=== PATIENT | male | born 1960 | race Two or more races ===

== ENCOUNTER 2022-12-10 10:42 | Emergency (ER) | payer MEDICAID, OTHER ==
[~2022-12-10] VITALS: Ht 172.7 cm; Wt 76.0 kg
[2022-12-10 11:32] VITALS: BP 128/78
[2022-12-10] MEDS ORDERED: HYDROcodone-ACET 5/325MG TAB PO ONE (11:45)
[2022-12-10] MEDS ORDERED: LISI-283 PO (12:04)
[2022-12-10] MEDS ORDERED: CEPH-510 PO (12:04)
[2022-12-10] MEDS ORDERED: LISI-285 PO ×2 (12:04)
[2022-12-10] MEDS ORDERED: HYDR-4902 PO (12:05)
== END 2022-12-10 12:13 | disposition home or self-care (01) ==
LOC: ER 10:42
DX: K40.90 Unilateral inguinal hernia, without obstruction or gangrene, not specified as recurrent (principal); Z76.0 Encounter for issue of repeat prescription; K11.5 Sialolithiasis; I10 Essential (primary) hypertension; Z88.5 Allergy status to narcotic agent

== ENCOUNTER 2023-01-05 10:41 | Emergency (ER) | payer MEDICAID ==
[~2023-01-05] VITALS: Ht 170.2 cm; Wt 70.0 kg
[~2023-01-05 10:41] MED LIST: CEPH-510 PO; HYDR-4902 PO; LISI-283 PO
[2023-01-05 15:21] VITALS: BP 105/74
[2023-01-06] MEDS ORDERED: LISI-283 PO (09:53)
[2023-01-06] MEDS ORDERED: HYDR50CA PO (09:53)
[2023-01-06] MEDS ORDERED: CEPH-510 PO (09:53)
== END 2023-01-05 15:25 | disposition left against medical advice (07) ==
LOC: ER 10:41
DX: R22.1 Localized swelling, mass and lump, neck (principal); Z76.0 Encounter for issue of repeat prescription; Z53.21 Procedure and treatment not carried out due to patient leaving prior to being seen by health care provider

== ENCOUNTER 2023-01-06 08:37 | Emergency (ER) | payer MEDICAID ==
[~2023-01-06] VITALS: Ht 170.2 cm; Wt 72.7 kg
[2023-01-06 08:58] VITALS: BP 126/79
[2023-01-06] MEDS ORDERED: LISI-283 PO (09:53)
[2023-01-06] MEDS ORDERED: CEPH-510 PO (09:53)
[2023-01-06] MEDS ORDERED: HYDR50CA PO (09:53)
== END 2023-01-06 09:59 | disposition home or self-care (01) ==
LOC: ER 08:37
DX: I10 Essential (primary) hypertension (principal); F17.210 Nicotine dependence, cigarettes, uncomplicated; Z76.0 Encounter for issue of repeat prescription; Z88.5 Allergy status to narcotic agent